=== PATIENT | female | born 1940 | race Caucasian/White ===

== ENCOUNTER → 2016-08-13 | Outpatient (CLI) | payer OTHER | LOC: BHFA 09:15 | PROVIDERS: ATTEND Internal Medicine Cardiovascular Disease | DX: R94.31 Abnormal electrocardiogram [ECG] [EKG] (principal); I10 Essential (primary) hypertension; R01.1 Cardiac murmur, unspecified ==

== ENCOUNTER → 2016-08-27 | Outpatient (CLI) | payer OTHER | LOC: BHFA 15:30 | PROVIDERS: ATTEND Internal Medicine | DX: I10 Essential (primary) hypertension (principal); R01.1 Cardiac murmur, unspecified ==

== ENCOUNTER → 2017-05-14 | Outpatient (CLI) | payer OTHER | LOC: BMCIMAGING 14:20 | PROVIDERS: ATTEND Family Medicine | DX: M19.041 Primary osteoarthritis, right hand (principal) ==

== ENCOUNTER 2017-06-05 10:37 | Observation (INO) | payer OTHER ==
--- NOTE | 2017-06-05 10:51 | CPEKG ---
Heart Rate: 87 RR Interval: 690 P-R Interval: 132 QRSD Interval: 98 QT Interval: 360 QTC Interval: 433 P [place]: 76 QRS [place]: -54 T Wave [place]: 81 EKG Severity - ABNORMAL ECG - EKG Impression: SINUS RHYTHM EKG Impression: LEFT ANTERIOR FASCICULAR BLOCK EKG Impression: PROBABLE LVH WITH SECONDARY REPOL ABNRM EKG Impression: ANTERIOR Q WAVES, POSSIBLY DUE TO LVH Electronically Signed By: Reynaldo Sen 05-Jun-2017 10:57:40
[2017-06-05] MEDS ORDERED: ASPIRIN 81 MG CHEWABLE TAB PO ONE (10:54)
[2017-06-05] MEDS ORDERED: NS 500 ML IV ONE (10:54)
--- NOTE | 2017-06-05 10:57 | EDPHY ---
H & P Stated Complaint: CP Time Seen by Provider: 06/05/17 10:47 HPI/ROS: CHIEF COMPLAINT: Chest pain HISTORY OF PRESENT ILLNESS: The patient is a 76-year-old female with a history of valve insufficiency and hypertension who comes to the emergency department complaining of chest pain briefly this morning for about 10 min. She states that it began at 7:30 a.m. while she was working in the kitchen. She cannot describe it as sharp or dull or achy et cetera. She describes it simply as "pain ". She denies shortness of breath or diaphoresis. She has felt slightly nauseous but no vomiting. No lightheadedness. She had something similar happened to her 5 days ago that was also very brief. She is concerned about her heart. She has not had any recent infectious symptoms. No shortness of breath. No abdominal pain. No urinary symptoms. No focal weakness or deficits. REVIEW OF SYSTEMS: Constitutional: denies: chills, fever, recent illness, recent injury EENTM: denies: blurred vision, double vision, nose congestion Respiratory: denies: cough, shortness of breath Cardiac: See HPI Gastrointestinal/Abdominal: denies: abdominal pain, diarrhea, nausea, vomiting, blood streaked stools Genitourinary: denies: dysuria, frequency, hematuria, pain Musculoskeletal: denies: joint pain, muscle pain Skin: denies: lesions, rash, jaundice, bruising Neurological: denies: headache, numbness, paresthesia, tingling, dizziness, weakness Hematologic/Lymphatic: denies: blood clots, easy bleeding, easy bruising Immunologic/allergic: denies: HIV/AIDS, transplant EXAM: GENERAL: Well-appearing, well-nourished and in no acute distress. HEAD: Atraumatic, normocephalic. EYES: Pupils equal round and reactive to light, extraocular movements intact, sclera anicteric, conjunctiva are normal. ENT: TMs normal, nares patent, oropharynx clear without exudates. Moist mucous membranes. NECK: Normal range of motion, supple without lymphadenopathy or JVD. LUNGS: Breath sounds clear to auscultation bilaterally and equal. No wheezes rales or rhonchi. HEART: Regular rate and rhythm without murmurs, rubs or gallops. ABDOMEN: Soft, nontender, normoactive bowel sounds. No guarding, no rebound. No masses appreciated. BACK: No CVA tenderness, no spinal tenderness, step-offs or deformities EXTREMITIES: Normal range of motion, no pitting or edema. No clubbing or cyanosis. NEUROLOGICAL: Cranial nerves II through XII grossly intact. Normal speech, normal gait. 5/5 strength, normal movement in all extremities, normal sensation PSYCH: Normal mood, normal affect. SKIN: Warm, dry, normal turgor, no visible rashes or lesions. Source: Patient Exam Limitations: No limitations - Personal History Current Tetanus/Diphtheria Vaccine: Unsure Current Tetanus Diphtheria and Acellular Pertussis (TDAP): Unsure - Medical/Surgical History Hx Asthma: No Hx Chronic Respiratory Disease: No Hx Diabetes: No Hx Cardiac Disease: No Hx Renal Disease: No Hx Cirrhosis: No Hx Alcoholism: No Hx HIV/AIDS: No Hx Splenectomy or Spleen Trauma: No Other PMH: HTN, - Family History Significant Family History: No pertinent family hx - Social History Smoking Status: Former smoker Alcohol Use: Sober Drug Use: None Constitutional: Initial Vital Signs Temperature (C) 36.4 C 06/05/17 10:41 Heart Rate 98 06/05/17 10:41 Respiratory Rate 16 06/05/17 10:41 Blood Pressure 218/113 H 06/05/17 10:41 O2 Sat (%) 96 06/05/17 10:41 O2 Delivery Mode Room Air Allergies/Adverse Reactions: No Known Allergies Allergy (Unverified 06/05/17 10:41) Home Medications: Medication Instructions Recorded Herbals/Supplements -Info Only 1 ea PO DAILY 06/05/17 Ibuprofen [Motrin (*)] 200 mg PO DAILY PRN 06/05/17 Ramipril [Altace] 10 mg PO DAILY 06/05/17 Medical Decision Making - Diagnostics EKG Interpretation: An EKG obtained and was read and documented in trace view. Please see trace view for full reading and report. Sinus rhythm, U waves, no acute ischemic changes Imaging: Discussed imaging studies w/ faculty i on call medical assistant Radiologist ED Course/Re-evaluation: 2:00 p.m. the patient feels completely well. I offered admission to the hospital for continued rule out but she declines. We will do a repeat troponin and if this is negative have her follow up with her Dr. Kati Randle for stress testing. 2:50 p.m. the patient's 2nd troponin is negative but has increased compared to previous. She remains completely asymptomatic and is eager to go home. Her is somewhat inpatient. I have paged Kati Randle for consultation. 3:00 p.m. I discussed the case with the PA for the Cardiology office. They advised admission because the patient's EKG is different than their most recent EKG. I discussed the case with Dr. Pickett who will admit. Differential Diagnosis: Partial list of the Differential diagnosis considered include but were not limited to; acute coronary disease, bronchitis, PE and although unlikely based on the history and physical exam, I also considered dissection, pneumothorax, arrhythmia. I discussed these differential diagnoses and the plan with the patient as well as the usual and expected course. The patient understands that the diagnosis is provisional and that in medicine we are not always correct and that further workup is often warranted. Usual and customary warnings were given. All of the patient's questions were answered. The patient was instructed to return to the emergency department should the symptoms at all worsen or return, otherwise to followup with the physician as we discussed. - Data Points Laboratory Results: Laboratory Results 06/05/17 11:00 06/05/17 11:00 Medications Given: Discontinued Medications Aspirin (Aspirin) 324 mg PO EDNOW ONE Stop: 06/05/17 10:55 Last Admin: 06/05/17 11:04 Dose: 324 mg Sodium Chloride (Ns) 500 mls @ 1,000 mls/hr IV EDNOW ONE PRN Reason: Protocol Stop: 06/05/17 11:23 Last Admin: 06/05/17 11:11 Dose: 500 mls Departure - Departure Disposition: Home, Routine, Self-Care Clinical Impression: Chest pain Qualifiers: Chest pain type: unspecified Qualified Code(s): R07.9 - Chest pain, unspecified Condition: Fair
[2017-06-05 11:07] LABS: PLATELET COUNT 152 10^3/uL (150-400)
[2017-06-05 11:27] LABS: INR 0.96 (0.83-1.16)
[2017-06-05] MEDS ORDERED: IOPAMIDOL (ISOVUE 370) 100 ML BTL IV ONE (12:49)
[2017-06-05] MEDS ORDERED: ONDANSETRON DISINTEGRATING 4 MG TAB PO PRN (15:25)
[2017-06-05] MEDS ORDERED: ACETAMINOPHEN 325 MG TAB PO PRN (15:25)
[2017-06-05] MEDS ORDERED: ONDANSETRON 4 MG/2 ML VIAL IVP PRN (15:25)
[2017-06-05] MEDS ORDERED: hydrALAZINE 20 MG/ML VIAL IVP PRN (16:55)
--- NOTE | 2017-06-05 17:27 | GHP ---
[f rep st] HISTORY AND PHYSICAL DATE OF ADMISSION: 06/05/2017 CHIEF COMPLAINT: Chest pain. PRIMARY DRAWER IN STITCH BONDING MACHINE: Kati Randle MD HISTORY OF PRESENT ILLNESS: A pleasant 76-year-old female with history of hypertension, diastolic heart failure, moderate MR, presenting with substernal chest pain. Pain started this morning after doing activities in her kitchen. It was 7/10, said it was sharp, at approximately 7:30 this morning. It lasted 5 -10 minutes and resolved on its own. Denies any associated diaphoresis, radiation, numbness, tingling or shortness of breath. She has had a similar episode last Saturday while sitting, making some phone calls. She does exercise twice a week doing resistance classes without shortness of breath or chest pain and also walks at [place]. Denies any PND, lower extremity edema. No fevers, chills, or sweats. REVIEW OF SYSTEMS: I completed a 10-point review of systems, negative except as noted in HPI. PAST MEDICAL HISTORY: 1. Hypertension. 2. Diastolic heart failure. 3. Moderate MR on echo in 07/2016. PAST SURGICAL HISTORY: None. FAMILY HISTORY: Father had an MO at age 59. Paternal grandfather had an MO at age 59. SOCIAL HISTORY: Plays tennis. Exercises with weights 2 times a week. Walks at [place] often. Drinks 2 glasses of wine daily. Smoked for a total of 20 years, 3 cigarettes a day. No illicits. ALLERGIES: No known drug allergies. HOME MEDICATIONS: Altace, ibuprofen, and herbal supplement. PHYSICAL EXAM: VITAL SIGNS: Temperature 36.4, blood pressure was 218/118 on admission, now 186/91. Heart rate in the 70s, respirations 18, 97% on room air. GENERAL: Well-appearing female, sitting up in bed, no acute distress HEENT: PERRLA. EOMI. Oropharynx clear. CARDIOVASCULAR: Regular rate and rhythm. No murmurs, gallops, or rubs. No lower extremity edema. LUNGS: Clear. No crackles or wheezing. ABDOMEN: Soft, nontender, nondistended. Positive bowel sounds. GENITOURINARY: No Andre. MUSCULOSKELETAL: 5/5 upper and lower extremity strength. NEUROLOGIC: 2 through 12 intact. PSYCHIATRIC: Alert and oriented x3. LABS: WBC is 4.3, hemoglobin 15, hematocrit 42, MCV is 102, platelets 152. D- dimer is 20. Sodium 144, potassium 4.2, chloride 107, carbon dioxide 21, creatinine 0.8 glucose 109, total bilirubin 0.9, AST is 32, ALT 41, albumin is 5. CTA: No evidence of PE. There is a benign 1.7 x 2.8 right adrenal gland adenoma. Chest x-ray is personally reviewed. No evidence of opacity or effusion. EKG is personally reviewed by me. LVH. Some ST depression in V5, V6. This is a little different from her prior in July 2016. ASSESSMENT AND PLAN: 1. Acute chest pain: Differential includes pulmonary embolism, acute coronary syndrome versus uncontrolled hypertension. Her blood pressure at arrival systolic was greater than 200. Will resume home medications and add p.r.n. hydralazine. This may need to be up-titrated. Her troponins x2 have been negative, with some changes on EKG. She is currently chest pain-free. CTA was negative for pulmonary embolism. Will admit to PCU for telemetry and repeat another troponin and nuclear treadmill in the morning. She does need to maximize blood pressure control. 2. Hypertension. Again, as stated above. 3. Diastolic heart failure, compensated. No evidence of volume overload. Will resume ERICA. Will need good blood pressure control. 4. Diet. No caffeine, n.p.o. after midnight. 5. Deep venous thrombosis prophylaxis. Lovenox. 6. Adrenal adenoma: will need FU imaging outpatient DISPOSITION: Patient warrants observation admission, given acute chest pain, hypertensive urgency warranting blood pressure control, and stress evaluation. /[id number]/MODL MTDD
[2017-06-06 07:34] VITALS: PULSE 65; RESP 15; TEMP 97.9; O2SAT 95
[2017-06-06 08:33] VITALS: BP 164/96
[2017-06-06] MEDS ORDERED: Herbals/Supplements -Info Only PO SCH (09:00)
[2017-06-06] MEDS ORDERED: RAMIPRIL 5 MG CAP PO SCH (09:00)
[2017-06-06] MEDS ORDERED: ENOXAPARIN 40 MG/0.4 ML SYR SC SCH (09:00)
--- NOTE | 2017-06-06 09:43 | ASMTCASEMG ---
Living Arrangements What is your living Answers: With Spouse arrangement? Who do you live with? Type Of Residence What kind of residence do Answers: House you live in? Discharge Plan Comments Coordination Status Comments Notes: Pt is a 76 y/o female admitted for chest pain. A stress test has been ordered. Pt will most likely not have any d/c needs if stress test comes back negative. CM available for changes. Plan: Independent Date Signed: 06/06/2017 09:43 AM Electronically Signed By:CASEY Oropeza
--- NOTE | 2017-06-06 11:53 | PDCARST ---
CAR Stress Test Results Type of Stress Test: Nuc TM Indication: cp Description of Procedure: After informed consent was obtained, pt was exercised according to Rene Protocol. Monitoring was performed with standard stress hypoid gear tester electrode placement. Vital signs were monitored according to protocol throughout the procedure. STRESS EKG AND HEMODYNAMIC DATA. Exercise time: min. This is equivalent to: METS. Resting heart rate: bpm. Resting blood pressure: mmHg. Resting O2 saturation: %. Peak heart rate: bpm. This is % of age predicted maximum heart rate response. Peak blood pressure: mmHg. Exercise O2: %. Arrhythmias: None. Reason for termination: The test was stopped due to . Symptoms: The patient experienced no typical symptoms of angina during stress or recovery. STRESS TEST ANALYSIS. Baseline ECG: SR with slow RWP and STD inf leads. Stress ECG: Sinus tach with no significant change from baseline. exercise induced ischemic ECG changes: No. Rhythm: Occasional PACs/PVCs during stress ( ablated in stage 2); frequent PVC in recovery. Blood pressure: Resting htn with hypertensive response to exercise. Exercise tolerance: The patient has normal exercise tolerance adjusted for age and gender. Symptoms: No exercise induced symptoms. Impression: Stress ECG negative for ischemia. The Booth Treadmill Score is 5, consistent with low cardiovascular risk (<1% annual mortality). Hypertension at rest and with exertion. Conclusion: Await nuclear images.
[2017-06-06] MEDS ORDERED: amLODIPine BESYLATE 5 MG TAB PO SCH (12:00)
--- NOTE | 2017-06-06 12:49 | GCON ---
[f rep st] CONSULTATION CARDIOLOGY CONSULTATION REASON FOR CONSULTATION: We are asked by Dr. Pickett of [facility] to evaluate this patient fo r her chest pain. PRIMARY TIP STITCHER: Kati Randle MD HISTORY OF PRESENT ILLNESS: The patient is a 76-year-old female [facility] She has a history of hypertension, left anterior fascicular block, and valvular heart di sease characterized by mild aortic regurgitation, moderate MR, and mild pulmonary hypertension at 44 mmHg. She reports 2 episodes of chest pain within the past week or so. On Saturday she was talking on the phone and noted this midsternal chest discomfort that was moderate in intensity. Symptoms laste d for approximately 5 minutes and resolved spontaneously. There was no associated dyspnea, diaphores is, nausea, or radiation of her discomfort. Again yesterday, she was working in her kitchen and had a similar discomfort. Due to this she became concerned for a cardiac process, presented to the emerg ency department, and now is ultimately admitted. She reports that she has not been checking her bloo d pressure regularly. Last week, when she had her chest discomfort, she did check her pressure, and it was elevated at 188. Similarly, yesterday she had elevated blood pressures up to 218 systolically . She denies any noncompliance with her medications. She has not been ill lately. Her exercise milan erance is per her usual, which is typically 2 times a week of working out with a head athletic trainer. REVIEW OF SYSTEMS: As per HPI. A 10-point review of systems was obtained and is negative except for what is dictated. PAST MEDICAL HISTORY: 1. Hypertension. 2. Diastolic heart failure. 3. Moderate MR. 4. Mild pulmonary hypertension. 5. Mild aortic regurgitation. SOCIAL HISTORY: Patient is . She was a past smoker. She drinks 2 glasses of wine nightly. ALLERGIES: No known drug allergies. HOME MEDICATIONS: Include ibuprofen, ramipril, and herbal supplement. PHYSICAL EXAMINATION: VITAL SIGNS: BP of 164/96, heart rate 65, respirations 15, O2 saturation 95% in room air, and temp of 97.9 degrees Fahrenheit. GENERAL: Pleasant female in no apparent distress. HEENT: Head is normocephalic atraumatic. Eyes are without scleral icterus. Mucous membranes mois t. HEART: Regular rate and rhythm with a 2/6 systolic ejection murmur. LUNGS: Clear. SKIN: Warm and dry. PSYCH: Normal mood and affect. NEURO: No focal deficits detected. DIAGNOSTICS: Outpatient echo from our office 08/27/2016 shows LVEF of 60% to 65%. There was impaire d relaxation and elevated LV filling pressures. Mild aortic sclerosis and mitral valve prolapse. Mi ld AR, moderate MR, and RVSP of 44. Telemetry reviewed shows sinus rhythm. A 12-lead ECG from 06/05 personally interpreted, demonstrates sinus rhythm with a left atrial abnormality. There is LAF B present. Diffuse ST-T wave abnormalities in the lateral leads, more pronounced. Chest x-ray images reviewed, show nothing acute. I spoke with Dr. Pickett about patient's care. Laboratory data: CBC with WBC 4.3, hemoglobin 15, hematocrit 42.3, and platelet count of 152. BMP w ith sodium 140, potassium 3.6, chloride 106, CO2 23, BUN 9, creatinine 0.7, glucose 97. Troponin les s than 0.012, then 0.031, then 0.025. She has a negative troponin and is pain-free at the time of ar rival. She has proceeded to treadmill stress testing with nuclear imaging. Her stress test shows hypertensi on at rest with normal exercise tolerance to 5-1/2 minutes. She achieved greater than 100% of her ma x predicted heart rate with no discomfort. We will await nuclear images. IMPRESSION/PLAN: The patient is a 76-year-old female admitted for chest pain. 1. Chest pain with abnormal ECG: Patient has been admitted for rule-out. 2. Hypertension: This likely is contributing to her symptom of chest discomfort that brought her to the emergency department. We discussed options, and patient is amenable to optimizing hypertension m anagement. She is on ramipril already. At this point, we will add amlodipine to her medical regimen . She is to avoid non-steroidal anti-inflammatories. Alcohol reduction also may be helpful in impro ving blood pressure control. /[id number]/MODL
--- NOTE | 2017-06-07 00:41 | GDS ---
[f rep st] DISCHARGE SUMMARY DISCHARGE DIAGNOSES: 1. Chest pain. Rule out myocardial infarction. 2. Severely elevated blood pressure with a history of known hypertension. Likely etiology of above. 3. History of valvular heart disease characterized by moderate mitral regurgitation, mild pulmonary hypertension, and mild aortic regurgitation. PROCEDURES: 1. On 06/05/2017 CTA of chest shows no evidence of PE, benign 1.7 x 2.8 right adrenal gland adenoma. 2. On 06/06/2017 nuclear stress test, which shows EF of 65% with no focal wall motion abnormalities and no ischemia or infarct present. The treadmill score of positive 5. BRIEF HISTORY: Please see dictated H and P for complete details. In brief, the patient is a 76-year -old female followed by Dr. Randle in the clinic setting. She has a history of hypertension, valvular heart disease, left anterior fascicular block, who presented after 2 episodes of chest pain, one occu rring approximately 1 week ago. The other episode occurred on day of admission. She describes a mod erate intensity discomfort. Upon checking her blood pressure, this was quite elevated. She presente d to the emergency department and had some mild EKG changes and was admitted for observation. HOSPITAL COURSE BY PROBLEM: 1. Chest pain syndrome. She has ruled out via cardiac enzymes. Her nuclear stress test shows no is chemia or infarct. She will be discharged to home with outpatient followup. 2. Hypertension. Her blood pressure is quite elevated upon presentation at 218/113. Through her ho spital course, her blood pressure has improved. She is started on amlodipine in addition to her Shaista ce. RESULTS PENDING: None. DIET: As per previous. ACTIVITY: As tolerated. DISCHARGE MEDICATIONS: Please see med reconciliation for complete details. She is being discharged on her home Altace. She has been started on amlodipine 5 mg p.o. daily. FOLLOWUP INSTRUCTIONS: Follow up in 1 week's time with [facility]. /[id number]/MODL
--- NOTE | 2017-06-07 09:27 | ASDISCHSUM ---
Discharge Information Plan Status:Home with No Needs Medically Cleared to Leave:06/05/2017 Discharge Date:06/06/2017 03:52 PM CM D/C Disposition: ADT D/C Disposition:Home, Routine, Self-Care Projected Discharge Date:06/06/2017 12:00 AM Transportation at D/C: Discharge Delay Reason: Follow-Up Date:06/06/2017 12:00 AM Discharge Slot: Final Diagnosis: Placement Information Patient Contact Information Contact Name:SANTOSH Relationship: Address:[address] Work Phone: City:[facility] Phone: State/Zip Code:[place] [address] Email: Financial Information Financial Class: Primary Plan Desc:MEDICARE OUTPATIENT Primary Plan Number:[id number] Secondary Plan Desc:[employer] PPO AND EPO Secondary Plan Number:[id number] Assessment Information LACE LACE Acuity / Level of Care Answers: Was the patient admitted to hospital via the emergency department? Yes: Emergency dept visits in Answers: 1 last 6 months Score: 4 Date Signed: 06/05/2017 03:06 PM Electronically Signed By:Ingris Amin RN [facility] Initial CM Assessment Living Arrangements What is your living Answers: With Spouse arrangement? Who do you live with? Type Of Residence What kind of residence do Answers: House you live in? Discharge Plan Comments Coordination Status Comments Notes: Pt is a 76 y/o female admitted for chest pain. A stress test has been ordered. Pt will most likely not have any d/c needs if stress test comes back negative. CM available for changes. Plan: Independent Date Signed: 06/06/2017 09:43 AM Electronically Signed By:CASEY Oropeza Intervention Information Intervention Type:*NICHOLE-Signed Date of Service:06/06/2017 09:45 AM Patient Type:Observation Staff Member:Zeenat Noel Hours: Discipline: Severity: Comment:
== END 2017-06-06 15:52 | disposition home or self-care (01) ==
LOC: F2W 18:14
PROVIDERS: ADMIT Internal Medicine; ATTEND Internal Medicine Cardiovascular Disease
PROC: 3E0337Z Introduction of Electrolytic and Water Balance Substance into Peripheral Vein, Percutaneous Approach (ICD-10-PCS; principal; 2017-06-05)
DX: R07.9 Chest pain, unspecified (principal); I10 Essential (primary) hypertension; I08.0 Rheumatic disorders of both mitral and aortic valves; I50.30 Unspecified diastolic (congestive) heart failure; E86.9 Volume depletion, unspecified; I27.20 Pulmonary hypertension, unspecified; I44.4 Left anterior fascicular block; E27.9 Disorder of adrenal gland, unspecified; Z87.891 Personal history of nicotine dependence; Z82.49 Family history of ischemic heart disease and other diseases of the circulatory system
CPT/HCPCS: 71046; 71275; 78452; 93005; 93017; 96360; 99285; A9500; J1650; Q9967

== ENCOUNTER → 2017-09-18 | Outpatient (CLI) | payer OTHER | LOC: BHFA 10:00 | PROVIDERS: ATTEND Internal Medicine Cardiovascular Disease | DX: I34.0 Nonrheumatic mitral (valve) insufficiency (principal) ==